=== PATIENT | female | born 1990 | race African-American/Black ===

== ENCOUNTER 2019-03-26 19:01 | Observation (INO) | payer MEDICAID, OTHER ==
[~2019-03-26] VITALS: Ht 162.6 cm; Wt 72.6 kg
[2019-03-26 21:00] VITALS: BP 137/80
[2019-03-26] MEDS ORDERED: PREN-96 PO (22:53)
[2019-03-26] MEDS ORDERED: TERBUTALINE SULFATE 1 MG/ML 1ML VIAL SC SCH (22:57)
[2019-03-26] MEDS ORDERED: TERBUTALINE SULFATE 1 MG/ML 1ML VIAL SC ONE (23:01)
== END 2019-03-27 02:38 | disposition home or self-care (01) | DRG 815 ==
LOC: EDBD 19:01 → ER 19:07 → LDRP 22:00
PROVIDERS: ADMIT Specialist; ATTEND Specialist
DX: Z04.3 Encounter for examination and observation following other accident (principal); O26.893 Other specified pregnancy related conditions, third trimester; R51 Headache; V89.2XXA Person injured in unspecified motor-vehicle accident, traffic, initial encounter; Y92.410 Unspecified street and highway as the place of occurrence of the external cause; O99.313 Alcohol use complicating pregnancy, third trimester; Z3A.33 33 weeks gestation of pregnancy
CPT/HCPCS: 59025; 76805; 81002; 96372; 99284; G0378; J3105